=== PATIENT | male | born 1990 | race Caucasian/White ===

== ENCOUNTER 2018-01-30 08:11 | Day surgery (SDC) | payer BC ==
[~2018-01-30] VITALS: Ht 180.3 cm; Wt 96.6 kg
[~2018-01-30 08:11] MED LIST: FLONASE ALLERG9.9 ML BOTH NARES; SINGULAIR10 MG PO
[2018-01-30 08:55] VITALS: BP 132/71
[2018-01-30] MEDS ORDERED: CLINDAMYCIN HC300 MG PO (11:50)
[2018-01-30] MEDS ORDERED: NORCO 5/3251 TABLET PO (11:50)
[2018-01-30 12:30] VITALS: BP 140/81
[2018-01-30 13:28] VITALS: BP 117/72
== END 2018-01-30 13:28 | disposition home or self-care (01) ==
LOC: SDC 08:11
PROC: 0JBF0ZZ Excision of Left Upper Arm Subcutaneous Tissue and Fascia, Open Approach (ICD-10-PCS; principal; 2018-01-30)
DX: L73.2 Hidradenitis suppurativa (principal); L72.0 Epidermal cyst; J45.909 Unspecified asthma, uncomplicated
CPT/HCPCS: 87641; 88304; J0131; J1100; J2250; J2405; J3010; J3370